=== PATIENT | male | born 1980 | race Caucasian/White ===

== ENCOUNTER → 2019-08-31 09:57 | Outpatient (BNVA) | payer BC, SELFPAY | PROVIDERS: Family Provider Physician Assistant Medical; PCP Internal Medicine Rheumatology; Visit Provider Psychiatry & Neurology Psychiatry | DX: F43.25 Adjustment disorder with mixed disturbance of emotions and conduct (principal); Z63.5 Disruption of family by separation and divorce | CPT/HCPCS: 99213 ==

== ENCOUNTER → 2019-12-29 08:35 | Outpatient (BNVA) | payer BC, SELFPAY | PROVIDERS: Family Provider Physician Assistant Medical; PCP Internal Medicine Rheumatology; Visit Provider Psychiatry & Neurology Psychiatry | DX: F43.25 Adjustment disorder with mixed disturbance of emotions and conduct (principal) | CPT/HCPCS: 99213 ==

== ENCOUNTER → 2025-04-21 08:15 | Outpatient (BNVA) | payer BC, SELFPAY | PROVIDERS: PCP Family Medicine; Visit Provider Family Medicine | DX: Z13.6 Encounter for screening for cardiovascular disorders (principal); Z12.5 Encounter for screening for malignant neoplasm of prostate; R30.0 Dysuria | CPT/HCPCS: 80053; 80061; 84153; 84403; 84439; 84443; 85025 ==